=== PATIENT | male | born 1950 | race Caucasian/White ===

== ENCOUNTER 2019-01-18 08:05 | Emergency (ER) | payer MEDICAID ==
[~2019-01-18] VITALS: Ht 172.7 cm; Wt 81.6 kg
[2019-01-18 08:17] VITALS: Ht 172.7 cm; Wt 81.6 kg
[2019-01-18 10:24] LABS: APPEARANCE FLUID CLEAR; COLOR FLUID YELLOW; SOURCE FLUID KNEE
[2019-01-18 10:25] LABS: RBC FLUID 230 /cumm; WBC FLUID 120 /cumm
[2019-01-18 11:02] LABS: LYMPHOCYTE FLUID 80 %; MONOCYTE FLUID 16 %
[2019-01-18 11:19] VITALS: BP 165/71
== END 2019-01-18 11:19 | disposition home or self-care (01) ==
LOC: ED 08:05
PROVIDERS: Emergency Medicine
DX: M17.11 Unilateral primary osteoarthritis, right knee (principal); M25.461 Effusion, right knee; I10 Essential (primary) hypertension; Z88.0 Allergy status to penicillin
CPT/HCPCS: J1885; J2001; Q0092

== ENCOUNTER 2020-03-13 19:32 | Inpatient (IN) | payer MEDICAID, SELFPAY ==
[~2020-03-13] VITALS: Ht 175.3 cm; Wt 80.3 kg
[2020-03-13 19:48] VITALS: Ht 175.3 cm; Wt 80.3 kg
[2020-03-13 21:00] LABS: PLATELET COUNT 239 x10^3mcL (130-400); RED CELL DISTRIBUTION WIDTH 12.9 % (11.5-14.5)
[2020-03-13 21:11] LABS: CALCIUM 9.1 mg/dL (8.5-10.1); CARBON DIOXIDE 26.3 mmol/L (21-32); CHLORIDE SERUM 99 mmol/L (98-107); CREATININE SERUM 0.9 mg/dL (0.7-1.3); GFR1 > 60 mL/min; GLUCOSE SERUM 181 mg/dL (74-106); POTASSIUM SERUM 3.7 mmol/L (3.5-5.1); SODIUM SERUM 136 mmol/L (136-145)
[2020-03-13 21:16] LABS: ALKALINE PHOSPHATASE 104 U/L (46-116); ALT/SGPT 48 U/L (16-63); AST/SGOT 27 U/L (15-37); TOTAL PROTEIN, SERUM 7.5 g/dL (6.4-8.2)
[2020-03-13 21:21] LABS: BAND NEUTROPHIL 0 % (0-10); BASOPHIL 0 % (0-2); MONOCYTE 5 % (0-7); PLATELET MORPHOLOGY PLATELETS NORMAL; SEGMENTED NEUTROPHILS 91 % (37-75); rbc morphology (normal/abnorm) NORMAL (NORMAL)
[2020-03-13 21:22] LABS: ALBUMIN 3.1 g/dL (3.4-5.0)
[2020-03-13] MEDS ORDERED: TAMSULOSIN HCL0.4 MG PO (21:58)
[2020-03-13 22:01] LABS: C REACTIVE PROTEIN 44.7 mg/dL (<=0.9)
[2020-03-13 22:24] LABS: UA SPECIFIC GRAVITY 1.025 (1.005-1.035); microscopic required? YES; urine erythrocyte 1+ (NEGATIVE)
[2020-03-13 23:34] LABS: T3 TOTAL 1.01 ng/mL
[2020-03-13 23:35] LABS: FREE T4 1.97 ng/dL (0.76-1.46); FREE THYROXINE INDEX 4.3 ug/dL (1.4-4.5)
[2020-03-13 23:44] LABS: CHOLESTEROL/HDL RATIO 3.8; MAGNESIUM 2.2 mg/dL (1.8-2.4); PHOSPHOROUS 3.1 mg/dL (2.5-4.9)
[2020-03-14 01:31] VITALS: BP 163/77
[2020-03-14 07:09] LABS: BASOPHIL % 0.1 % (0-2); PLATELET COUNT 245 x10^3mcL (130-400); RED CELL DISTRIBUTION WIDTH 12.8 % (11.5-14.5)
[2020-03-14 07:26] LABS: CALCIUM 8.7 mg/dL (8.5-10.1); CARBON DIOXIDE 24.8 mmol/L (21-32); CHLORIDE SERUM 99 mmol/L (98-107); CREATININE SERUM 0.8 mg/dL (0.7-1.3); GFR1 > 60 mL/min; GLUCOSE SERUM 145 mg/dL (74-106); PHOSPHOROUS 3.7 mg/dL (2.5-4.9); POTASSIUM SERUM 3.7 mmol/L (3.5-5.1); SODIUM SERUM 135 mmol/L (136-145)
[2020-03-14 08:22] LABS: C REACTIVE PROTEIN 19.1 mg/dL (<=0.9)
[2020-03-14 08:49] VITALS: BP 144/78
[2020-03-14 12:43] VITALS: BP 147/80
[2020-03-14 16:58] VITALS: BP 139/79
[2020-03-14 23:01] VITALS: BP 142/76
[2020-03-15 06:33] VITALS: BP 138/74
[2020-03-15 07:57] LABS: PLATELET COUNT 279 x10^3mcL (130-400); RED CELL DISTRIBUTION WIDTH 12.8 % (11.5-14.5)
[2020-03-15 08:23] LABS: CHLORIDE SERUM 98 mmol/L (98-107); CREATININE SERUM 0.7 mg/dL (0.7-1.3); GFR1 > 60 mL/min; GLUCOSE SERUM 124 mg/dL (74-106); MAGNESIUM 2.5 mg/dL (1.8-2.4); POTASSIUM SERUM 3.9 mmol/L (3.5-5.1); SODIUM SERUM 134 mmol/L (136-145)
[2020-03-15 09:02] LABS: C REACTIVE PROTEIN 19.3 mg/dL (<=0.9)
[2020-03-15 09:47] VITALS: BP 136/71
[2020-03-15 10:25] LABS: BAND NEUTROPHIL 2 % (0-10); BASOPHIL 0 % (0-2); MONOCYTE 6 % (0-7); SEGMENTED NEUTROPHILS 87 % (37-75)
[2020-03-15 10:27] LABS: PLATELET MORPHOLOGY PLATELETS NORMAL
[2020-03-15 14:08] VITALS: BP 123/79
[2020-03-15 18:37] VITALS: BP 146/83
[2020-03-15 21:54] VITALS: BP 134/72
[2020-03-16 05:34] VITALS: BP 124/74
[2020-03-16 08:21] LABS: BASOPHIL % 0.8 % (0-2); PLATELET COUNT 304 x10^3mcL (130-400); RED CELL DISTRIBUTION WIDTH 12.7 % (11.5-14.5)
[2020-03-16 08:53] LABS: CALCIUM 9.2 mg/dL (8.5-10.1); CARBON DIOXIDE 24.6 mmol/L (21-32); CHLORIDE SERUM 101 mmol/L (98-107); CREATININE SERUM 0.7 mg/dL (0.7-1.3); GFR1 > 60 mL/min; GLUCOSE SERUM 134 mg/dL (74-106); MAGNESIUM 2.4 mg/dL (1.8-2.4); PHOSPHOROUS 3.7 mg/dL (2.5-4.9); POTASSIUM SERUM 4.2 mmol/L (3.5-5.1); SODIUM SERUM 136 mmol/L (136-145)
[2020-03-16 08:59] LABS: C REACTIVE PROTEIN 15.4 mg/dL (<=0.9)
[2020-03-16 09:00] VITALS: BP 134/79
[2020-03-16 12:30] VITALS: BP 145/80
[2020-03-16 16:00] VITALS: BP 141/68
[2020-03-16 22:27] VITALS: BP 141/68
[2020-03-16 23:51] VITALS: BP 132/74
[2020-03-17 06:19] VITALS: BP 122/75
[2020-03-17 08:29] VITALS: BP 131/80
[2020-03-17 08:38] LABS: BASOPHIL % 0.7 % (0-2); PLATELET COUNT 359 x10^3mcL (130-400); RED CELL DISTRIBUTION WIDTH 12.9 % (11.5-14.5)
[2020-03-17 08:39] LABS: CALCIUM 9.4 mg/dL (8.5-10.1); CARBON DIOXIDE 26.5 mmol/L (21-32); CHLORIDE SERUM 99 mmol/L (98-107); CREATININE SERUM 0.8 mg/dL (0.7-1.3); GFR1 > 60 mL/min; GLUCOSE SERUM 130 mg/dL (74-106); POTASSIUM SERUM 4.2 mmol/L (3.5-5.1); SODIUM SERUM 137 mmol/L (136-145)
[2020-03-17 08:44] LABS: ALKALINE PHOSPHATASE 130 U/L (46-116); ALT/SGPT 387 U/L (16-63); AST/SGOT 135 U/L (15-37); BILIRUBIN DIRECT 0.19 mg/dL (0.0-0.2); BILIRUBIN TOTAL 0.68 mg/dL (0.20-1.00); C REACTIVE PROTEIN 6.9 mg/dL (<=0.9); MAGNESIUM 2.5 mg/dL (1.8-2.4); PHOSPHOROUS 3.4 mg/dL (2.5-4.9); TOTAL PROTEIN, SERUM 7.7 g/dL (6.4-8.2)
[2020-03-17 08:48] LABS: ALBUMIN 2.9 g/dL (3.4-5.0)
[2020-03-17 12:21] VITALS: BP 123/80
[2020-03-17 16:41] VITALS: BP 126/72
[2020-03-17 19:55] VITALS: BP 130/77
[2020-03-18 03:50] VITALS: BP 129/72
[2020-03-18 08:02] VITALS: BP 110/80
[2020-03-18 09:08] LABS: BILIRUBIN DIRECT 0.23 mg/dL (0.0-0.2); BILIRUBIN TOTAL 0.8 mg/dL (0.20-1.00); TOTAL PROTEIN, SERUM 6.4 g/dL (6.4-8.2)
[2020-03-18 09:12] LABS: ALBUMIN 2.9 g/dL (3.4-5.0)
[2020-03-18 09:25] LABS: C REACTIVE PROTEIN 3.6 mg/dL (<=0.9); CARBON DIOXIDE 25.8 mmol/L (21-32); CHLORIDE SERUM 99 mmol/L (98-107); CREATININE SERUM 0.8 mg/dL (0.7-1.3); GFR1 > 60 mL/min; GLUCOSE SERUM 117 mg/dL (74-106); POTASSIUM SERUM 4.5 mmol/L (3.5-5.1); SODIUM SERUM 134 mmol/L (136-145)
[2020-03-18 11:03] LABS: PLATELET COUNT 359 x10^3mcL (130-400); RED CELL DISTRIBUTION WIDTH 12.7 % (11.5-14.5)
[2020-03-18 12:11] VITALS: BP 136/74
[2020-03-18 16:30] VITALS: BP 120/75
[2020-03-18 20:22] VITALS: BP 116/62
[2020-03-19 04:56] VITALS: BP 111/60
[2020-03-19 07:47] LABS: BASOPHIL % 1.1 % (0-2); PLATELET COUNT 370 x10^3mcL (130-400); RED CELL DISTRIBUTION WIDTH 12.9 % (11.5-14.5)
[2020-03-19 08:49] VITALS: BP 138/75
[2020-03-19 08:51] LABS: ALKALINE PHOSPHATASE 115 U/L (46-116); ALT/SGPT 331 U/L (16-63); AST/SGOT 81 U/L (15-37); BILIRUBIN DIRECT 0.19 mg/dL (0.0-0.2); BILIRUBIN TOTAL 0.76 mg/dL (0.20-1.00); C REACTIVE PROTEIN 2.7 mg/dL (<=0.9); CALCIUM 8.9 mg/dL (8.5-10.1); CARBON DIOXIDE 30.2 mmol/L (21-32); CHLORIDE SERUM 99 mmol/L (98-107); CREATININE SERUM 0.8 mg/dL (0.7-1.3); GFR1 > 60 mL/min; GLUCOSE SERUM 112 mg/dL (74-106); POTASSIUM SERUM 4.2 mmol/L (3.5-5.1); SODIUM SERUM 135 mmol/L (136-145)
[2020-03-19 08:53] LABS: ALBUMIN 3.1 g/dL (3.4-5.0)
[2020-03-19 12:11] VITALS: BP 124/75
[2020-03-19 16:46] VITALS: BP 123/71
[2020-03-19 20:48] VITALS: BP 116/65
[2020-03-20 04:53] VITALS: BP 107/53
[2020-03-20 07:38] LABS: BASOPHIL % 0.8 % (0-2); PLATELET COUNT 339 x10^3mcL (130-400); RED CELL DISTRIBUTION WIDTH 12.7 % (11.5-14.5)
[2020-03-20 08:24] LABS: ALKALINE PHOSPHATASE 109 U/L (46-116); ALT/SGPT 338 U/L (16-63); AST/SGOT 74 U/L (15-37); BILIRUBIN TOTAL 0.74 mg/dL (0.20-1.00); CALCIUM 8.4 mg/dL (8.5-10.1); CARBON DIOXIDE 27.8 mmol/L (21-32); CHLORIDE SERUM 101 mmol/L (98-107); CREATININE SERUM 0.8 mg/dL (0.7-1.3); GFR1 > 60 mL/min; GLUCOSE SERUM 119 mg/dL (74-106); POTASSIUM SERUM 4.2 mmol/L (3.5-5.1); SODIUM SERUM 135 mmol/L (136-145); TOTAL PROTEIN, SERUM 6.4 g/dL (6.4-8.2)
[2020-03-20 08:34] LABS: ALBUMIN 2.9 g/dL (3.4-5.0)
[2020-03-20 09:14] VITALS: BP 117/70
[2020-03-20 12:25] VITALS: BP 126/71
[2020-03-20 16:26] VITALS: BP 118/66
[2020-03-20 21:14] VITALS: BP 119/69
[2020-03-21 05:59] VITALS: BP 113/65
[2020-03-21 07:51] LABS: PLATELET COUNT 346 x10^3mcL (130-400); RED CELL DISTRIBUTION WIDTH 12.9 % (11.5-14.5)
[2020-03-21 08:03] LABS: BASOPHIL % 4.2 % (0-2)
[2020-03-21 08:15] LABS: C REACTIVE PROTEIN 1.5 mg/dL (<=0.9); CARBON DIOXIDE 30.5 mmol/L (21-32); CHLORIDE SERUM 98 mmol/L (98-107); CREATININE SERUM 0.8 mg/dL (0.7-1.3); GFR1 > 60 mL/min; GLUCOSE SERUM 112 mg/dL (74-106); POTASSIUM SERUM 4.3 mmol/L (3.5-5.1); SODIUM SERUM 135 mmol/L (136-145)
[2020-03-21 09:17] VITALS: BP 128/69
[2020-03-21 12:34] VITALS: BP 115/58
[2020-03-21 16:48] VITALS: BP 112/62
[2020-03-21 21:05] VITALS: BP 144/74
[2020-03-22 05:55] VITALS: BP 114/64
[2020-03-22 07:15] LABS: BASOPHIL % 0.3 % (0-2); PLATELET COUNT 327 x10^3mcL (130-400); RED CELL DISTRIBUTION WIDTH 12.8 % (11.5-14.5)
[2020-03-22 07:50] LABS: CALCIUM 8.8 mg/dL (8.5-10.1); CARBON DIOXIDE 29.4 mmol/L (21-32); CHLORIDE SERUM 98 mmol/L (98-107); CREATININE SERUM 0.8 mg/dL (0.7-1.3); GFR1 > 60 mL/min; GLUCOSE SERUM 146 mg/dL (74-106); MAGNESIUM 2.4 mg/dL (1.8-2.4); PHOSPHOROUS 3.6 mg/dL (2.5-4.9); POTASSIUM SERUM 4.8 mmol/L (3.5-5.1); SODIUM SERUM 134 mmol/L (136-145)
[2020-03-22 08:56] VITALS: BP 126/79
[2020-03-22 12:28] VITALS: BP 127/63
[2020-03-22] MEDS ORDERED: ELIQUIS2.5 MG PO (14:03)
[2020-03-22] MEDS ORDERED: XARELTO20 M1 PO ×2 (16:08→16:50)
[2020-03-22 16:29] VITALS: BP 127/63
[2020-03-22 18:07] VITALS: BP 119/77
== END 2020-03-22 20:43 | disposition home or self-care (01) | DRG 720 ==
LOC: ED 19:32 → DU 21:41
PROVIDERS: Emergency Medicine; Family Medicine; Internal Medicine; Internal Medicine Infectious Disease; ADMIT Internal Medicine; ATTEND Internal Medicine
PROC: 30233L1 Transfusion of Nonautologous Fresh Plasma into Peripheral Vein, Percutaneous Approach (ICD-10-PCS; principal; 2020-03-13)
PROC: 30233K1 Transfusion of Nonautologous Frozen Plasma into Peripheral Vein, Percutaneous Approach (ICD-10-PCS; 2020-03-13)
DX: A41.89 Other specified sepsis (principal); J96.00 Acute respiratory failure, unspecified whether with hypoxia or hypercapnia; U07.1 COVID-19; E44.1 Mild protein-calorie malnutrition; D68.59 Other primary thrombophilia; J12.89 Other viral pneumonia; N40.0 Benign prostatic hyperplasia without lower urinary tract symptoms; Z88.0 Allergy status to penicillin; Z79.01 Long term (current) use of anticoagulants
CPT/HCPCS: 36600; 83880; 84439; 85378; 87804; 94150; G0378; J0456; J0696; J1100; J1650; J3535; J7040; Q0092; U0003-CS